=== PATIENT | female | born 1955 | race Caucasian/White ===

== ENCOUNTER 2018-12-17 10:10 | Inpatient (IN) ==
--- NOTE | 2018-12-17 11:05 | EKG Report ---
Test Performed on : 12/17/2018 10:32:29 AM Test Reason : elevated potassium Blood Pressure : / mmHG Vent. Rate : 079 BPM Atrial Rate : 079 BPM P-R Int : 158 ms QRS Dur : 074 ms QT Int : 336 ms P-R-T Axes : 040 -10 052 degrees QTc Int : 385 ms Normal sinus rhythm. Normal ECG When compared with ECG of 03-JUL-2013 14:53, No significant change was found Unconfirmed Result
[2018-12-17 11:25] LABS: URINE SOURCE CLEAN CATCH
[2018-12-17 11:34] LABS: BASO# 0.06 X1000 (0.0-0.2); BASO% 0.7 % (0.0-0.8); EOS% 7.4 % (0.0-10.0); HEMATOCRIT 39.2 % (37.0-47.0); HEMOGLOBIN 12.7 g/dL (12.0-16.0); IMM GRAN# 0.05 X1000 (0.0-0.04); IMM GRAN% 0.6 % (0.0-0.5); LYMPH# 2.73 X1000 (1.2-3.4); LYMPH% 33.7 % (20.5-51.1); MCHC 32.4 g/dL (33-37); MCV 92.5 FL (81-99); MONO% 4.9 % (1.7-9.3); MPV 10.9 FL (7.4-10.4); NEUT# 4.27 X1000 (1.4-6.5); NEUT% 52.7 % (42.2-75.2); PLT 291 X1000 (130-400); RBC 4.24 XMIL (4.2-5.4); RDW 12.5 % (11.5-14.5); WBC 8.11 X1000 (4.8-10.8)
[2018-12-17 11:37] LABS: BILIRUBIN URINE NEGATIVE (NEGATIVE); BLOOD URINE NEGATIVE (NEGATIVE); COLOR YELLOW; GLUCOSE URINE NEGATIVE (NEGATIVE); KETONE URINE NEGATIVE (NEGATIVE); LEUKOCYTES URINE TRACE (NEGATIVE); NITRITE URINE NEGATIVE (NEGATIVE); PROTEIN URINE NEGATIVE (NEGATIVE); SP GRAVITY URINE 1.018; TURBIDITY URINE CLEAR (CLEAR); UR EPITHELIAL CELLS <10 /HPF (<10); URINE BACTERIA NEGATIVE /HPF; URINE RBC <10 /HPF (<10); URINE WBC <10 /HPF (<10); UROBILINOGEN URINE NORMAL (NORMAL)
[2018-12-17 11:58] LABS: ALB/GLOB RATIO 1.2; CALCIUM 10.2 mg/dL (8.8-10.2); MAGNESIUM 1.7 mg/dL (1.5-2.7); TOTAL BILIRUBIN 0.24 mg/dL (0.20-1.00); TOTAL PROTEIN 7.3 g/dL (6.3-8.3)
[2018-12-17 12:13] LABS: POTASSIUM 6.5 mmol/L (3.5-5.1)
[2018-12-17] MEDS ORDERED: DUONEB (A & A) INH ONE (12:28)
[2018-12-17] MEDS ORDERED: KAYEXALATE PO ONE (12:29)
[2018-12-17] MEDS ORDERED: CALCIUM GLUCONATE 1 GM in NS 50 ML IV ONE (12:37)
[2018-12-17] MEDS ORDERED: HUMULIN R IV ONE (12:37)
[2018-12-17] MEDS ORDERED: D50W SYRINGE IV ONE (12:37)
[2018-12-17] MEDS ORDERED: ALBUTEROL 0.5% INH CONC FOR HYPERKALEMIA INH ONE ×2 (12:40→16:40)
--- NOTE | 2018-12-17 13:29 | PROVIDER DOCUMENTATION ---
This chart was entered by Holli Asher Scribe, acting as scribe for Manuel Ross MD. HPI-General Adult - General Chief Complaint: Abnormal Lab[s] Stated Complaint: HIGH POTASSIUM Time Seen by Provider: 12/17/18 10:37 Source: patient Allergies/Adverse Reactions: Patient Allergies Allergy/AdvReac Type Severity Reaction Status Date / Time adhesive Allergy Intermediate Blisters Verified 12/17/18 10:42 latex Allergy Unknown Unknown Verified 12/17/18 10:42 Home Medications: Home Medication List Medication Instructions Recorded Confirmed Last Taken Type AMLODIPINE/BENAZEpril [Lotrel 07/19 1 each PO HS 05/04/12 12/17/18 Unknown Histor y mg] Carvedilol [Coreg] 6.25 mg PO BID 05/04/12 12/17/18 07/02/13 21:00 History 6.25 MG Cyanocobalamin [Vitamin B-12] 500 microgm PO HS 05/04/12 12/17/18 07/02/13 21:00 History 500 MICROGM Metformin HCl 1,000 mg PO BID 05/04/12 12/17/18 07/02/13 21:00 History 1000 MG Aspirin 81 mg PO DAILY #0 chewtab 07/05/13 12/17/18 Unknown Rx Niacin (Inositol Niacinate) 1 cap PO DAILY 12/17/18 12/17/18 Unknown History [Niacin 500 mg Capsule] Red Yeast Rice 600 mg PO DAILY 12/17/18 12/17/18 Unknown History - History of Present Illness -Gen Adult Nature of Presenting Problems: 63yof presents to ED cc elevated potassium level of 7. Pt reports she had routine labs at [facility] yesterday and was called this morning and told to come to ED based on potassium level. Pt also reports heartburn last night, pain in left hip that is increased with walking, 'pulling' in left calf that is increased with walking, mild SOB that is increased with activity and intermittent diarrhea & dizziness. Pt reports she finished ABT today for a skin infection and recently started magnesium due to low magnesium levels. Pt denies chest pain, N/V/F. Pt ahs hx of DM, CVA and CAD. Pt is nontoxic and in no acute distress upon exam. Location of Pain/Injury: reports: pelvis (left), lower extremity (left calf) Quality of Pain: reports: tightness, other (pulling) Severity: reports: mild Onset/Duration: reports: 4 days ago Timing: reports: still present, intermittent Context/Activities at Onset: reports: light activity Modifying Factors: worse with: exercise, movement Associated Symptoms: reports: diarrhea, heartburn Similar Symptoms Previously?: No Recently seen or treated by another doctor?: Yes (saw her [facility] yesterday for labs) Review of Systems - Adult - REVIEW OF SYSTEMS - ADULT Constitutional: reports: see HPI. denies: chills, fever, fatique Eyes: reports: no symptoms reported Ears, Nose, Mouth & Throat: reports: no symptoms reported Cardiovascular: reports: see HPI, other (elevated potassium levels). denies: chest pain, irregular heart rate, palpitations Respiratory: reports: see HPI, shortness of breath (mild with walking). denies: cough, wheezing Gastrointestinal: reports: see HPI, diarrhea (intermittent), frequent heartburn. denies: constipation, nausea, vomiting Genitourinary: reports: no symptoms reported Musculoskeletal: reports: see HPI, frequent leg cramps (pulling in back of left leg), joint pain (pain in left hip with walking) Integumentary: reports: no symptoms reported Neurological: reports: see HPI, dizziness/vertigo (mild). denies: slurred speech Psychiatric: reports: no symptoms reported Endocrine: reports: no symptoms reported Hematologic/Lymphatic: reports: no symptoms reported Allergic/Immunologic: reports: no symptoms reported All Other Systems: Reviewed and Negative Past History - Adult - PAST MEDICAL HISTORY-ADULT Review of Records: reports: Nursing Assessment Review, Medications Reviewed, Social history reviewed & non-contributory. Major Childhood Illnesses: reports: denies history Cardiovascular: reports: denies history Respiratory: reports: denies history Gastrointestinal: reports: denies history Obstetrical/Gynecological: reports: denies history Genitourinary: reports: denies history Musculoskeletal: reports: denies history Neurological: reports: denies history Endocrine/Immune: reports: denies history Other Conditions: reports: denies history - IMMUNIZATION STATUS Childhood Immunizations: See Nurse Assessment Flu Vaccine: See Nurse Assessment - FAMILY HISTORY Family History: reviewed, not pertinent - SOCIAL HISTORY Smoking: denies Physical Exam-General - PHYSICAL EXAM-ADULT Initial Vital Signs Reviewed: Yes - CONSTITUTIONAL General Appearance: appears well, alert, no apparent distress. negative: anxious, combative - EYES Eyes: PERRL/EOMI, pink conjunctivae. negative: photophobia - HEAD, EARS, NOSE, MOUTH & THROAT HENMT: normocephalic/atraumatic, moist mucous membranes. negative: angioedema - RESPIRATORY Respiratory: lungs clear, normal breath sounds. negative: chest non-tender (tender on palpation to right 5th intercostal), stridor, wheezing - CARDIOVASCULAR Cardiovascular: normal peripheral pulses, regular rate, rhythm, no edema. negative: bradycardia, tachycardia - GASTROINTESTINAL (ABDOMEN) Abdominal Exam: normal bowel sounds, non tender, soft. negative: rebound, tenderness - MUSCULOSKELETAL Back Exam: normal inspection, no CVA tenderness, no vertebral tenderness Extremity: normal range of motion, normal inspection, normal capillary refill, pelvis stable. negative: deformity - SKIN Integumentary: normal color. negative: diaphoresis, jaundice - PSYCHIATRIC Psych/Mental Status: normal mood/affect, oriented x 3. negative: anxious, disheveled Progress - PLAN OF CARE/RESULTS Progress/Plan/Lab Results: Vital Signs - 8 hr 12/17/18 10:17 Temperature 98.4 F Pulse Rate 84 Respiratory Rate 20 Blood Pressure 142/85 O2 Sat by Pulse Oximetry 95 Orders Category Date Time Status Nursing- Obtain EKG ONCE Care 12/17/18 10:30 Active CBC WITH ELECTRONIC DIFF [HEME] Stat Lab 12/17/18 10:39 Received COMPREHENSIVE METABOLIC PANEL [CHEM] Stat Lab 12/17/18 10:39 Received MAGNESIUM [CHEM] Stat Lab 12/17/18 10:39 Received UA NIMS W/REFLEX CULT [URINALYSIS] Stat Lab 12/17/18 10:39 Received EKG [EKG] Stat Ther 12/17/18 10:55 Draft Result Diagrams: 12/17/18 10:39 12/17/18 10:39 - REASSESSMENT Reassessment #1 Time Reassessed: 13:10 Status: other (PT STABLE. ADMINISTERED INSULIN-DEXTROSE, ALBUTEROL NEBS AND KAYEXALATE AND CALCIUM GLUCONATE.) - EKG 1 Time of EKG reading by physician:: 10:32 EKG Read and Signed by:: Manuel Ross EKG Interpretation (*Must complete 3 of following elements*): Normal Rate: 79 Rhythm: nsr QRS: normal ST Wave: elevated Departure - Departure Date of Disposition Decision: 12/17/18 Time of Disposition Decision: 13:27 DIAGNOSIS: Hyperkalemia, Renal insufficiency Disposition: ADMITTED INPATIENT 09 Certified Medical Emergency: Emergent Condition: Stable Additional Freetext Instructions: ED Follow Up Instructions: You have been treated by a care provider in the Emergency Department. These instructions are being provided to you so you can have an understanding of how to care for yourself upon discharge. Upon discharge from the Emergency Department, you are responsible for making arrangements for follow-up care by a physician of your choice. Take all prescribed medications as directed. Return to the Emergency Department immediately for any new or worsening symptoms. You may call the Physician Referral phone number at [phone] to obtain a list of Physicians who are taking new patients. Referrals and Follow-Ups: Fouzia Melendrez CRNP [Primary Care Provider] - - Critical Care Note This patient required my direct & personal management of CC.: Yes Total Time (mins): 40 Critical Care Statement: This patient required my direct personal management to treat or rule out processes, the absence of which, could potentiallly result in sudden, clinically significant life or limb threatening deterioration. Attestation - Physician/ HU Attestation Patient care was provided by Advanced Practice Provider:: No The physician spent face to face time with patient:: Yes Advanced Practice Provider documentation review:: Supervising physician onsite and consulted in the evaluation and care of this patient. The physician did have a face to face encounter with the patient. This chart was documented by the indicated scribe, (Holli Asher Scribe) and accurately reflects the services I performed and decisions made by me, Manuel Ross MD, as attested by the provider's signature.
[2018-12-17] MEDS ORDERED: TYLENOL PO PRN (14:40)
[2018-12-17] MEDS ORDERED: ZOFRAN IV PRN (14:40)
[2018-12-17] MEDS: HUMALOG SUBQ SCH ×2 (16:00→23:25)
[2018-12-17 16:06] LABS: CALCIUM 10.7 mg/dL (8.8-10.2); CREATININE 1.9 mg/dL (0.5-0.9)
[2018-12-17] MEDS ORDERED: SODIUM BICARBONATE 8.4% IV PUSH ONE (16:09)
[2018-12-17] MEDS: LACTULOSE PO SCH ×3 (16:45→22:11)
[2018-12-17] MEDS: NS 1,000 ML IV SCH (17:05)
--- NOTE | 2018-12-17 17:30 | HISTORY AND PHYSICAL ---
ADDENDUM: HISTORY OF PRESENT ILLNESS: In brief, Ms. Bruce is a 63-year-old lady with past medical history of cerebrovascular accident in 2010 and 2015, coronary artery disease treated medically, [id number] diabetes mellitus, who was called by her account technician's office because of high potassium. The patient is not able to tell me if she had any kidney dysfunction in the past. However, considering her diabetes, she was supposed to have a follow-up with her account technician, who she had seen about 6 months ago. Her account technician had drawn routine blood labs, and her potassium was detected to be 7, so she was called in to go to the emergency room. In the emergency room, her potassium is detected to be 6.5. She is currently being treated with albuterol and insulin D50. Kayexalate was also given. SUBJECTIVE: The patient states recently she had a skin infection for which she was prescribed an antibiotic. She does not remember the name of it. She completed the course today morning. She is complaining of some muscle cramps. Otherwise, she denies any chest pain or shortness of breath. PHYSICAL EXAMINATION: VITAL SIGNS: Temperature of 98.4 degrees, pulse 84, respiratory rate 20, blood pressure 142/85. She is saturating 95% on room air. GENERAL: She is not in acute distress. HEENT: Oral cavity is moist. LUNGS: Air entry bilaterally equal. No wheeze, rhonchi, or crackles. CARDIOVASCULAR: S1, S2 normal. No murmur, rub, or gallop. ABDOMEN: Soft, nontender. She has 3 erythematous papules in left lower abdominal quadrant which are nontender. Appears mildly inflamed without any active infection. EXTREMITIES: She mild bilateral lower extremity edema. NEUROLOGIC: She is alert and oriented x3. LABORATORY DATA: Suggestive of hyperkalemia. What appears to be acute kidney injury. Hypercalcemia. Blood glucose of 87. MICROBIOLOGY: Urine culture was drawn, which is pending. However, she is not having any symptoms. Electrocardiogram has normal sinus rhythm. ASSESSMENT AND PLAN: 1. Acute kidney injury with life-threatening hyperkalemia. She is listed to be taking benazepril in her medications. I called the patient's pharmacy and inquired about the antibiotics. Apparently, she has been taking Bactrim since last 10 days for superficial skin infection which is likely the culprit in her case. I will start her on intravenous fluids. I will treat her hyperkalemia with lactulose. I will give her Lokelma and albuterol and will keep checking potassium every 12 hours. I have also consulted Nephrology for acute kidney injury. 2. She does have history of coronary artery disease treated medically, CVA, and hyperlipidemia. I will continue her home aspirin, carvedilol, and other meds. 3. Disposition. I will monitor patient under telemetry unit. Plan of care discussed with her. All questions have been answered. cc: Avelino Mnedez MD MTDD
[2018-12-17 17:50] LABS: UR CREAT RANDOM 71.4 mg/dL (11-20)
--- NOTE | 2018-12-17 20:02 | HISTORY AND PHYSICAL ---
PRIMARY CARE PROVIDERS: RADHA Pradhan CHIEF COMPLAINT: Elevated electrolytes. HISTORY OF PRESENT ILLNESS: Ms. Deb Bruce is a 63-year-old female with a medical history of CVA and residual trace right-sided weakness, hypertension, diabetes mellitus type 2, GERD and CKD, looks like close to stage 4 but stage 3. She presents here after Dr. Hastings's office with Nephrology called to alert her of an elevated potassium level and to come to the emergency department. Apparently there it was reported as potassium level 7.0, here it was 6.5. She has been given medications and it is down to 6.0. There are peaked T waves on her EKG. She denies eating any foods that contain potassium, except she did have a banana last week, but nothing recently. No medications that can increase her potassium level, so we will admit her and give her medications to help lower the potassium. We will consult Dr. Mendez for any further recommendations. PAST MEDICAL HISTORY: 1. CVA with trace right-sided weakness. 2. Hypertension. 3. Hyperlipidemia. 4. Diabetes mellitus type 2. 5. GERD. 6. Mild diastolic dysfunction. 7. CKD stage 3B. 8. Coronary disease with 1 small artery that is unable to have a stent placed secondary to it being a small one. No heart attack. 9. [place] thyroiditis, but no home medications for it. PAST SURGICAL HISTORY: 1. Left breast biopsy. 2. Right knee scope. 3. Slade teeth extraction. 4. Hysterectomy. 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 Her daughter lives with her. Denies tobacco, alcohol or illicit drug use. FAMILY HISTORY: Mother had melanoma and valvular disease. She also had goiter. Father had a stroke. She had a brother and a niece both with thyroid cancer, and a maternal grandmother with stroke. ALLERGIES: Adhesive tape and sensitive to statins. She denies being allergic to latex. HOME MEDICATIONS: 1. Coreg 6.25 mg p.o. twice daily. 2. Lotrel 5/10 one tablet p.o. nightly. 3. Metformin 1000 mg p.o. twice daily. 4. Niacin 500 mg p.o. daily. 5. Red yeast rice 600 mg p.o. daily. 6. Vitamin B12, 500 mcg p.o. nightly. 7. Aspirin 81 mg p.o. daily. REVIEW OF SYSTEMS: Fourteen-point review of systems were complete and all were negative except for those mentioned above in HPI. She did feel like the back of her legs were tight, and was having a hard time being able to stand up for long without getting weak. PHYSICAL EXAMINATION: VITAL SIGNS: Temperature 98.4 degrees, heart rate 83, respiratory rate 16, blood pressure 142/85, O2 saturation 95% on room air. Five feet 5 inches tall, 196 pounds. BMI 32.6. GENERAL: Ms. Deb Bruce is a 63-year-old female who is in no acute distress. She is able to answer questions appropriately. HEENT: Atraumatic, normocephalic. Pupils equal, round and reactive to light. Extraocular movements intact. Mucous membranes are dry. NECK: Trachea midline. CARDIOVASCULAR: S1, S2. Regular rate and rhythm. No rubs, gallops or murmurs. No lower extremity edema. Dorsalis and radial pulses +2. Negative JVD or carotid bruits. PULMONARY: Clear to auscultation. Bilateral breath sounds. No accessory muscle use or work of breathing noted. GASTROINTESTINAL: Soft, nontender, nondistended. Positive bowel sounds x4. EXTREMITIES: Moves all extremities equally. Full range of motion. NEUROLOGIC: Alert and oriented x3, follows commands. Sensory is intact. SKIN: Warm, dry, intact. LABORATORY DATA: White blood cells 8000, hemoglobin 12, hematocrit 39, platelet count 291,000. Sodium 136. The first potassium was 6.5, is down to 6.0. BUN 40, creatinine is 1.9, glucose 81, calcium 10.7, magnesium 1.7, bilirubin 0.24, AST 13, ALT 13, albumin 4.0. Urinalysis: Trace leukocytes. DIAGNOSTIC DATA: EKG: Normal sinus rhythm, rate 79, QTc 385 and there are some peaked T-waves on that EKG. ASSESSMENT AND PLAN: 1. Hyperkalemia. She initially received Kayexalate, 10 units of intravenous insulin, dextrose 50%, 1 g calcium gluconate and a hyperkalemic albuterol treatment. Then she received a sodium bicarbonate intravenous push, 50 mEq, and started on Lokelma 10 mg p.o. t.i.d. 2. Chronic kidney disease stage 3B, or this could be acute kidney injury. We will order a renal ultrasound and some urine labs. 3. Hypertension. Continue home medications. 4. She reports congestive heart failure, but her last ejection fraction was normal, some mild diastolic dysfunction. We will continue the Coreg. 5. Diabetes mellitus type 2. We will do pattern blood glucoses, sliding scale insulin. 6. Hyperlipidemia, but has an intolerance to statins. 7. History of [place] thyroiditis, but no home medications for that. 8. Deep venous thrombosis prophylaxis. Heparin subcutaneously q.12 hours. Dictated by RADHA Duarte for Avelino Mendez MD cc: RADHA Duarte MD I agree with most components of history, physical, assessment and plan. A separate addendum has been dictated. RANDY
[2018-12-17] MEDS ORDERED: VITAMIN B-12 PO SCH (21:00)
[2018-12-17] MEDS ORDERED: LOTREL 5/10 MG PO SCH (21:00)
[2018-12-17] MEDS: LOKELMA POWDER PACKET PO SCH (23:20)
[2018-12-17] MEDS: HEPARIN SUBQ SCH (23:20)
[2018-12-17] MEDS: COREG PO SCH (23:20)
[2018-12-18 05:20] LABS: BASO# 0.06 X1000 (0.0-0.2); BASO% 0.9 % (0.0-0.8); EOS# 0.43 X1000 (0.0-0.7); EOS% 6.4 % (0.0-10.0); HEMATOCRIT 38.4 % (37.0-47.0); HEMOGLOBIN 12.5 g/dL (12.0-16.0); IMM GRAN# 0.03 X1000 (0.0-0.04); IMM GRAN% 0.4 % (0.0-0.5); LYMPH# 2.74 X1000 (1.2-3.4); LYMPH% 40.5 % (20.5-51.1); MCHC 32.6 g/dL (33-37); MCV 92.3 FL (81-99); MONO# 0.34 X1000 (0.11-0.59); MPV 10.5 FL (7.4-10.4); NEUT# 3.17 X1000 (1.4-6.5); NEUT% 46.8 % (42.2-75.2); PLT 261 X1000 (130-400); RBC 4.16 XMIL (4.2-5.4); RDW 12.5 % (11.5-14.5); WBC 6.77 X1000 (4.8-10.8)
[2018-12-18 05:25] LABS: INR 1.06
[2018-12-18 05:26] LABS: PTT 27.9 Seconds (22.3-41.8)
[2018-12-18 05:48] LABS: ALB/GLOB RATIO 1.2; ALBUMIN 3.6 g/dL (3.5-5.0); CREATININE 1.8 mg/dL (0.5-0.9); MAGNESIUM 1.6 mg/dL (1.5-2.7); TOTAL BILIRUBIN 0.27 mg/dL (0.20-1.00); TOTAL PROTEIN 6.7 g/dL (6.3-8.3)
--- NOTE | 2018-12-18 08:00 | Diag Imaging Result Doc PS360 ---
EXAM: US RENAL 2 (RETROPER) COMPLETE INDICATION: wanda/ckd TECHNIQUE: COMPARISON: None. FINDINGS: The kidneys are grossly normal in echotexture with no discrete renal mass or hydronephrosis. The right kidney measures 10 cm and the left kidney measures 9.1 cm in the greatest longitudinal axes. Right renal cortex measures up to 1.2 cm and the left renal cortex measures up to 1.4 cm in thickness. The urinary bladder is nondistended and cannot be evaluated as such. IMPRESSION: Essentially unremarkable renal ultrasound. Electronically signed by Jonathon Rao 12/18/2018 7:58 AM
[2018-12-18] MEDS ORDERED: 1/2 NS 1,000 ML IV SCH (08:15)
--- NOTE | 2018-12-18 08:32 | PROGRESS NOTE ---
DATE: 12/18/2018 INTERVAL HISTORY: No acute events overnight. SUBJECTIVE: She is denying any complaints. She is feeling better. She is making good amount of urine. She has had 2 bowel movements. Her potassium has normalized. I discussed with her about possibly Bactrim contributing to her acute kidney injury. OBJECTIVE: Vital Signs: Temperature 98 degrees, pulse 88, respiratory 20, blood pressure 130/68 and saturating 99% room air. General: Does not appear in acute distress. HEENT: Oral cavity is moist. Lungs: Air entry bilaterally equal. No wheeze, rhonchi or crackles. Heart: S1 and S2 normal. No murmur or gallop. Abdomen: Soft and nontender. She has 3 erythematous papules on the left lower abdominal quadrant which are nontender, and mildly inflamed without infection. Extremities: She has lower extremity edema. Neurologic: She is alert and oriented x3. She has some weakness of right upper and lower extremity which is residual as compared to left from prior CVA. LABORATORY: CBC is unremarkable. BMP suggestive of hyperchloremia and improvement in anion gap. Improvement in BUN and creatinine. ASSESSMENT AND PLAN: 1. Acute kidney injury with hyperkalemia and low bicarbonate. She was listed to be taking benazepril and metformin since before. However, she had recently started a course of Bactrim, which could have contributed to her acute kidney injury. I am holding these medications. Continue intravenous fluids, and follow up with serial BMP. Her outpatient records are pending to get an idea about baseline kidney function. Renal ultrasound was unremarkable. 2. History of coronary artery disease treated medically; CVA and hyperlipidemia. I will continue her home aspirin, carvedilol and Niacin. 3. Disposition: I will monitor patient in telemetry unit as I await kidney function improvement. Plan of care discussed with the patient. All of her questions were satisfactorily answered. cc: Avelino Mendez MD
--- NOTE | 2018-12-18 08:53 | EKG Report ---
Test Performed on : 12/18/2018 06:16:00 AM Test Reason : hyperkalemia Blood Pressure : / mmHG Vent. Rate : 086 BPM Atrial Rate : 086 BPM P-R Int : 136 ms QRS Dur : 072 ms QT Int : 334 ms P-R-T Axes : 020 -14 062 degrees QTc Int : 399 ms Normal sinus rhythm. Normal ECG Confirmed by Adam BASSETT, Cricket Rangel ([id number]) on 12/19/2018 7:41:53 PM
[2018-12-18] MEDS ORDERED: NIACIN PO SCH (09:00)
[2018-12-18] MEDS ORDERED: ASPIRIN PO SCH (09:00)
[2018-12-18] MEDS: HEPARIN SUBQ SCH (10:05)
[2018-12-18] MEDS: COREG PO SCH (10:05)
[2018-12-18] MEDS: LOKELMA POWDER PACKET PO SCH ×2 (10:06→13:53)
[2018-12-18] MEDS: LACTULOSE PO SCH (10:06)
[2018-12-18] MEDS: NS 1,000 ML IV SCH (10:07)
[2018-12-18] MEDS: HUMALOG SUBQ SCH ×2 (12:29→16:26)
[2018-12-18 18:08] VITALS: BP 115/95
--- NOTE | 2018-12-18 18:35 | NEPHROLOGY CONSULTATION ---
DATE: 12/18/2018 REASON FOR CONSULTATION: Life-threatening hyperkalemia. HISTORY OF PRESENT ILLNESS: Ms. Bruce is a 63-year-old white female with a history of coronary disease, diabetes, hypertension. She has recently seen Dr. Hastings for the first time in order to evaluate her chronic kidney disease. A 24 hour urine was ordered and she turned that in on this past Sunday. Labs collected at the time found potassium of 7 so she was directed to the emergency room. Her initial ER potassium was 6.5 and has been treated successfully to a potassium of 5.0. She was taking Bactrim DS b.i.d. for management of a skin lesion. This problem has improved. Otherwise, no recent changes in her medication. PAST MEDICAL HISTORY: As above. HOME MEDICATIONS: Include amlodipine, benazepril, carvedilol, metformin, aspirin, niacin, Bactrim, insulin. ALLERGIES: Adhesive and latex. SOCIAL HISTORY: No alcohol or tobacco. . FAMILY HISTORY: Otherwise noncontributory. REVIEW OF SYSTEMS: Otherwise noncontributory. PHYSICAL EXAMINATION: Vital Signs: Blood pressure 146/76, heart rate 99, respirations 14, afebrile. GENERALLY: Middle-aged woman in no acute distress.Skin: Warm and dry. HEENT: Conjunctivae are pink. Pupils are equal. Neck: Neck veins are not distended. Heart: Regular. No gallops. Lungs: Equal. No crackles or wheezes. Abdomen: Soft, nontender. Bowel sounds present. No organomegaly, masses or bruits. Extremities: Have no edema, clubbing or cyanosis. IMPRESSION: Acute hyperkalemia. Improved with treatment. Her hyperkalemia is related to her baseline chronic kidney disease, DAYSI inhibitor, Bactrim. This has been successfully treated. Kidney function is at baseline. No other alarm findings. Her kidney ultrasound is essentially unremarkable. Okay to discharge home. I would withhold her Bactrim and perhaps withhold her DAYSI inhibitor as well and Dr. Hastings can restart that at her upcoming office visit in 2 weeks. cc: Saúl Mendez MD
--- NOTE | 2018-12-19 13:20 | DISCHARGE SUMMARY ---
ADMISSION DATE: 12/17/2018 DISCHARGE DATE: 12/18/2018 DISCHARGE DISPOSITION: Home. DISCHARGE CONDITION: Hemodynamically stable, alert and oriented x3. Her potassium has normalized. DISCHARGE DIAGNOSES: 1. Hyperkalemia. 2. Acute kidney injury on chronic kidney disease due to Bactrim use. 3. Hyponatremia. 4. Metabolic acidosis. OTHER DIAGNOSES: 1. History of coronary artery disease, treated medically. 2. History of diastolic dysfunction. 3. History of cerebrovascular accident. 4. Hyperlipidemia. 5. Insulin-dependent diabetes mellitus. 6. Essential hypertension. DISCHARGE MEDICATIONS: Her home medications were not properly reconciled. I advised her to resume all of her home medications, except metformin until her kidney function improves. She told me that she takes: 1. Tresiba 28 units at nighttime, which I advised her to continue. 2. Carvedilol 6.25 mg b.i.d. 3. Amlodipine/benazepril 5/10 mg tablet 1 tablet at nighttime. 4. Niacin 1 capsule daily. 5. Red yeast rice 600 mg daily. 6. Vitamin B12, 500 mcg at nighttime. 7. Aspirin 81 mg daily. 8. She was also supposed to be taking isosorbide, which is not currently reconciled, but I advised her to continue that. PHYSICAL EXAMINATION: Vital Signs: At the time of discharge, temperature 98.1 degrees, pulse 90, respiratory rate 15, blood pressure 115/95, saturating 99% on room air. General: Does not appear in acute distress. HEENT: Oral cavity is moist. Lungs: Air entry bilaterally equal. No wheeze, rhonchi, crackles. Cardiovascular: S1, S2 normal. No murmur or gallop. Abdomen: Soft, nontender. She has three erythematous papules of the left lower abdominal quadrant, which are nontender and mildly inflamed, without infection. Extremities: She has lower extremity edema, only mild. Neurologic: She was alert and oriented x3. She had some weakness of right upper extremity because of prior CVA. CONSULTATIONS DURING HOSPITAL ADMISSION: Dr. Mendez, Nephrology. SIGNIFICANT LABORATORY DATA DURING HOSPITAL ADMISSION AND DISCHARGE: Her hemoglobin is 12.5, platelets 261,000. On presentation, she was found to have potassium of 6.5, which improved over the course, and at the time of discharge, it is 5. Her BUN is 28, creatinine is 1.8. Apparently, her baseline creatinine is between 1.3 to 1.5 due to chronic kidney disease related to diabetic nephropathy. SIGNIFICANT MICROBIOLOGY: No microbiology. She did not have any urine symptoms, though urine culture is in lab. SIGNIFICANT IMAGING: Renal ultrasound had essentially unremarkable kidneys. CARDIOVASCULAR: EKG had normal sinus rhythm. HOSPITAL COURSE SUMMARY: Ms. 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 In the emergency room, she was found to have potassium of 6.5. She was aggressively treated for hyperkalemia with Kayexalate, albuterol inhalation, insulin, D50, lactulose, and calcium gluconate, following which her potassium started trending down. She also was found to have acute kidney injury. On presentation, her creatinine was found to be 2, so she was also resuscitated with intravenous fluids. It was thought that her acute kidney injury and hyperkalemia were related to Bactrim use, which was started 10 days prior to current admission by her regular provider for pustules over her abdominal wall skin. Her pustules had resolved, and on the day of presentation, she had just completed 10 days of Bactrim. She did not get any anymore Bactrim, and with intravenous fluid, her kidney function improved. At the time of discharge, she was advised to not take metformin until her kidney function improves. She was advised to continue taking her Tresiba. She was also advised to get a repeat BMP done within 5 days, and a lab slip was provided. TIME SPENT: 25 minutes were spent in discharging the patient. All of her questions were answered. cc: MD RANDY Castañeda
== END 2018-12-18 19:03 | disposition home or self-care (01) | DRG 641 ==
LOC: ED 10:10 → 1N 10:11
PROVIDERS: ATTEND Internal Medicine